=== PATIENT | female | born 1965 | race Caucasian/White ===

== ENCOUNTER 2020-02-20 16:42 | Outpatient (REF) | payer OTHER, SELFPAY ==
--- NOTE | 2020-02-20 | MM_ITS ---
EXAMINATION: MM SCREENING DIGITAL BREAST TOMOSYNTHESIS, BILATERAL CLINICAL INFORMATION: Screening. Asymptomatic. The lifetime risk of breast cancer based on the Tyrer-Cuzick Model is 19.5%. COMPARISON: Mammography: 10/21/2018, 10/15/2017, 10/02/2016 TECHNIQUE: Digital breast tomosynthesis is performed in both the craniocaudal and mediolateral oblique views along with computer-aided detection (CAD). Synthesized 2D images are generated from the tomosynthesis. FINDINGS: There are scattered areas of fibroglandular density (ACR BI-RADS breast composition Category b). There are no significant masses, abnormal calcifications, or other abnormalities. There is small stable nodule likely dermal lesion overlying the inferior medial left breast. There is stable nodularity likely intraparenchymal nodes right breast upper outer quadrant. No significant changes from prior studies. IMPRESSION: No mammographic evidence of malignancy. ASSESSMENT: BI-RADS 2: Benign RECOMMENDATION: 1. Routine annual mammography screening. 2. The lifetime risk of breast cancer based on the Tyrer-Cuzick Model is 19.5%. Additional annual adjunct screening with breast MRI may be of benefit in women with a risk score of 20% or greater. This patient's information was entered into a reminder system with a target due date for their next mammogram.
== END 2020-02-20 16:43 | disposition home or self-care (01) ==
LOC: HO.MAMMO 16:42
PROVIDERS: PCP Internal Medicine; Visit Provider Internal Medicine
DX: Z12.31 Encounter for screening mammogram for malignant neoplasm of breast (principal)
CPT/HCPCS: 77063; 77067; 78014

== ENCOUNTER 2021-04-13 08:03 | Outpatient (REF) | payer BC, SELFPAY ==
--- NOTE | ~2021-04-13 | MM_ITS ---
EXAMINATION: MM SCREENING DIGITAL BREAST TOMOSYNTHESIS, BILATERAL CLINICAL INFORMATION: Screening. Asymptomatic. The lifetime risk of breast cancer based on the Tyrer-Cuzick Model is 18%. COMPARISON: Mammography: 02/20/2020, 10/21/2018, 10/15/2017 TECHNIQUE: Digital breast tomosynthesis is performed in both the craniocaudal and mediolateral oblique views along with computer-aided detection (CAD). Synthesized 2D images are generated from the tomosynthesis. FINDINGS: There are scattered areas of fibroglandular density (ACR BI-RADS breast composition Category b). There are no significant masses, abnormal calcifications, or other abnormalities. Again, there is dermal lesion overlying the posterior medial left breast. Intramammary nodes again seen overlying the posterior outer bilateral breasts. MM/MM tomosynthesis screening BI IMPRESSION: No mammographic evidence of malignancy. ASSESSMENT: BI-RADS 2: Benign RECOMMENDATION: Routine annual mammography screening. This patient's information was entered into a reminder system with a target due date for their next mammogram.
== END 2021-04-13 08:04 | disposition home or self-care (01) ==
LOC: HO.MAMMO 08:03
PROVIDERS: PCP Internal Medicine; Visit Provider Internal Medicine
DX: Z12.31 Encounter for screening mammogram for malignant neoplasm of breast (principal)
CPT/HCPCS: 77063; 77067

== ENCOUNTER 2022-04-17 08:01 | Outpatient (REF) | payer BC, SELFPAY ==
--- NOTE | ~2022-04-17 | MM_ITS ---
EXAMINATION: MM SCREENING DIGITAL BREAST TOMOSYNTHESIS, BILATERAL CLINICAL INFORMATION: Screening. Asymptomatic. Family history breast cancer, mother. The lifetime risk of breast cancer based on the Tyrer-Cuzick Model is 21%. COMPARISON: Mammography: 04/13/2021, 02/20/2020, 10/21/2018 TECHNIQUE: Digital breast tomosynthesis is performed in both the craniocaudal and mediolateral oblique views along with computer-aided detection (CAD). Synthesized 2D images are generated from the tomosynthesis. FINDINGS: There are scattered areas of fibroglandular density (ACR BI-RADS breast composition Category b). There are no significant masses, abnormal calcifications, or other abnormalities. Parenchymal pattern is similar to prior studies. No architectural abnormality or developing density. Again, there is a dermal lesion overlying the posterior medial left breast and incidental intramammary nodes upper outer bilateral breasts. No significant changes. MM/MM tomosynthesis screening BI IMPRESSION: No mammographic evidence of malignancy. ASSESSMENT: BI-RADS 2: Benign RECOMMENDATION: Routine annual mammography screening. This patient's information was entered into a reminder system with a target due date for their next mammogram.
== END 2022-04-17 08:02 | disposition home or self-care (01) ==
LOC: HO.MAMMO 08:01
PROVIDERS: PCP Internal Medicine; Visit Provider Internal Medicine
DX: Z12.31 Encounter for screening mammogram for malignant neoplasm of breast (principal)
CPT/HCPCS: 77063; 77067

== ENCOUNTER 2023-06-11 07:34 | Outpatient (REF) | payer BC, SELFPAY | END 2023-06-11 07:35 | disposition home or self-care (01) | LOC: HO.MAMMO 07:34 | PROVIDERS: PCP Nurse Practitioner Family; Visit Provider Internal Medicine | DX: Z12.31 Encounter for screening mammogram for malignant neoplasm of breast (principal) | CPT/HCPCS: 77063; 77067 ==

== ENCOUNTER → 2023-06-11 08:00 | Outpatient (BNV) | payer BC, SELFPAY | PROVIDERS: PCP Nurse Practitioner Family; Visit Provider Radiology Diagnostic Radiology | DX: Z12.31 Encounter for screening mammogram for malignant neoplasm of breast (principal) | CPT/HCPCS: 77063; 77067 ==

== ENCOUNTER 2024-07-18 14:48 | Outpatient (REF) | payer BC, SELFPAY ==
--- OUTSIDE RECORDS SUMMARY | 2024-07-18 17:56 | XMS_ITS | Continuity of Care Document ---
Author Organization [facility] Julio Cesar Jose Juan lt Address [address] [place] [address]- Care Team Providers Care Embedded Processor Name Role Phone Amilcar ROAST MASTER, Whitney Buck Primary Care Physician [phone] Encounter [facility] Date(s): 05/31/24 - 06/30/24 [facility] Jarod Spearsley Adult [address] [place] [address]- Encounter Type: Triage Allergies, Adverse Reactions, Alerts Substance Criticality Severity Reaction Reaction Severity Status glipiZIDE bloating Active simvastatin Active penicillins Active Invokana mycotic Active Lipitor Resolved metFORMIN diarrhea Resolved Immunizations Given and Recorded Vaccine Date Status Refusal Reason influenza virus vaccine, inactivated 1 03/01/24 Gi jose influenza virus vaccine, inactivated 2 02/22/23 Gi jose influenza virus vaccine, inactivated 04/27/21 Dov rded influenza virus vaccine, inactivated 01/13/20 Dov rded influenza virus vaccine, inactivated 03/13/19 Give n influenza virus vaccine, inactivated 3 03/18/17 Re corded influenza virus vaccine, inactivated 02/14/14 Give n influenza virus vaccine, inactivated 06/07/13 Give n tetanus-diphtheria toxoids (Td) 4 11/05/22 Given tetanus-diphtheria toxoids (Td) 5 02/17/06 Given pneumococcal 20-valent conjugate vaccine 6 11/05/22 Given SARS-CoV-2 (COVID-19) mRNA BNT-162b2 vac 04/27/21 Recorded SARS-CoV-2 (COVID-19) mRNA BNT-162b2 vac 09/13/20 Recorded SARS-CoV-2 (COVID-19) mRNA BNT-162b2 vac 08/22/20 Recorded zoster vaccine, inactivated 01/13/20 Recorded zoster vaccine, inactivated 10/06/19 Recorded Influenza Virus Vaccine (oldterm) 02/21/18 Recorde d pneumococcal 23-valent vaccine 06/29/12 Given tetanus/diphtheria/pertussis, acel(Tdap) 06/29/12 Given Fluarix (oldterm) 03/02/11 Given 1Result Comment: [id number] 2Result Comment: [id number] 3[facility] Comment: [facility] 4[facility] Comment: [id number] 5Admin Note: historical data 6Result Comment: [id number] Medications amLODIPine 5 mg oral tablet 1 tablet, By Mouth, Daily, # 90 tablet, 1 Refills, Maintenance, 03/26/24 2:19:00 PM EST, [facility], 161, cm, 03/01/24 13:44:00 EDT, Height Start Date: 03/26/24 Status: Ordered Quantity: 90.0 Unit: tablet Repeat number: 1 aspirin 81 mg oral enteric coated capsule 1 capsule = 81 mg, By Mouth, Daily, # 120 capsule, 0 Refills, Maintenance, 06/01/11 7:19:21 PM EST, EC Capsule Start Date: 06/01/11 Status: Ordered Quantity: 120.0 Unit: capsule Repeat number: 1 atenolol 100 mg oral tablet 1 tablet, By Mouth, Daily, # 90 tablet, 1 Refills, Maintenance, 02/09/24 1:01:00 PM EDT, [facility], 162, cm, 11/11/23 12:56:00 EDT, Height Start Date: 02/09/24 Status: Ordered Quantity: 90.0 Unit: tablet Repeat number: 1 atorvastatin 80 mg oral tablet 1 tablet, By Mouth, Daily, # 90 tablet, 0 Refills, 04/17/24 7:33:00 AM EST, [facility], 161,cm, 03/01/24 13:44:00 EDT, Height Start Date: 04/17/24 Status: Ordered Quantity: 90.0 Unit: tablet Repeat number: 1 BD UF SHORT PEN NEEDLE [id number] BD UF SHORT PEN NEEDLE [id number], See Instructions, # 100 Unknown, 1 Refills, Maintenance, TO USE WITH INSULIN PEN DX: E11.9, 02/07/24 11:13:00 AM EDT, 162, cm, 11/11/23 12:56:00 EDT, Height Start Date: 02/07/24 Status: Ordered Quantity: 100.0 Unit: Unknown Repeat number: 1 ezetimibe 10 mg oral tablet 1 tablet, By Mouth, Daily, # 90 tablet, 0 Refills, Maintenance, 05/03/24 9:49:00 PM EST, [facility], 161, cm, 03/01/24 13:44:00 EDT, Height Start Date: 05/03/24 Status: Ordered Quantity: 90.0 Unit: tablet Repeat number: 1 FreeStyle Yung 3 FreeStyle Yung 3, See Instructions, # 2 each, Refills 11, Tot. Refills 11, Maintenance, FreeStyle Yung 3 Sensors change every 14 days to use with erick on phone E11.9 takes insulin once a day check blood sugars 4 times a day, 11/11/23 2:49:00 PM EDT, i cancelled the yung 2 and she wants yung 3 andwill use her phone, Supply, 162, cm, 11/11/23 12:56:00 EDT, Height Start Date: 11/11/23 Status: Ordered Quantity: 2.0 Unit: each Repeat number: 12 Freestyle Lite Lancets See Instructions, # 200 each, Refills 11, Tot. Refills 11, Maintenance, dx:250.00 pt tests bid, 02/01/13 12:57:00 PM EDT, Compound Start Date: 02/01/13 Stop Date: 01/27/14 Status: Ordered Quantity: 200.0 Unit: each Repeat number: 12 Freestyle Lite Test Strips See Instructions, # 90 each, Refills 5, Tot. Refills 5, Maintenance, Test BS TID for IDDM E11.9, 09/24/16 3:53:48 PM EDT, Compound Start Date: 09/24/16 Stop Date: 03/23/17 Status: Ordered Quantity: 90.0 Unit: each Repeat number: 6 Insulin Syringe, BD Ultra-Fine 1 cc 31 G x 8 mm (5/16in) See Instructions, # 100 each, Refills 11, Tot. Refills 11, Maintenance, E11.9 Diabetes type 2 use once a day with lantus, 08/26/22 1:45:00 PM EDT, Supply, 163, cm, 08/26/22 13:07:00 EDT, Height Start Date: 08/26/22 Status: Ordered Quantity: 100.0 Unit: each Repeat number: 12 Lantus Solostar Pen 100 units/mL subcutaneous solution See Instructions, 40 UNITS SUBCUTANEOUS INJECTION DAILY AT BEDTIME,X90 DAYS, # 15 Unknown, 0 Refills, Maintenance, 05/28/24 2:30:00 PM EST, [facility]/pharmacy #[id number], 161, cm, 05/28/24 14:02:00 EST, Height Start Date: 05/28/24 Status: Ordered Quantity: 15.0 Unit: Unknown Repeat number: 1 lisinopril 10 mg oral tablet 1, tablet, By Mouth, Daily, # 90 tablet, Refills 1, Maintenance, 01/02/24 5:41:00 PM EDT, Route to Pharmacy Electronically, [facility], 162, cm, 11/11/23 12:56:00 EDT, Height Start Date: 01/02/24 Status: Ordered Quantity: 90.0 Unit: tablet Repeat number: 1 Ozempic 8 mg/3 mL (2 mg dose) subcutaneous solution = 2 mg, Subcutaneous Injection, Every 7 days, # 3 each, 1 Refills, Maintenance, 05/28/24 2:28:00 PM EST, [facility]/pharmacy #[id number], 161, cm, 05/28/24 14:02:00 EST, Height Start Date: 05/28/24 Stop Date: 11/24/24 Status: Ordered Quantity: 3.0 Unit: each Repeat number: 2 Pen [place], 31 G x 5 mm BD Ultra Fine III See Instructions, # 100 each, Refills 1, Tot. Refills 1, Maintenance, TO USE WITH INSULIN PEN DX: E11.9, 08/12/23 10:58:00 AM EDT, Compound, 162, cm, 02/22/23 8:49:00 EDT, Height Start Date: 08/12/23 Status: Ordered Quantity: 100.0 Unit: each Repeat number: 2 Problem List Condition Confirmation Course Effective Dates Status H ealth Status Informant Adjustment disorder with depressed mood Confirmed Active Arteriosclerotic heart disease (ASHD) 1 Confirmed Active Benign Essential Hypertension 2 Confirmed 02/19/09 Active Bunion of right foot Confirmed Active Diverticulosis, sigmoid Confirmed Active Familial hyperlipidemia Confirmed Active Meralgia paresthetica of left side Confirmed Active Severe obesity (BMI 35.0-39.9) with comorbidity Confirmed Active Type 2 diabetes with nephropathy 3 Confirmed Active 1lad stent 2011 [place] 2workup pending ETT,Echo 3refer diabetic education Social History Social History Type Response Smoking Status Never smoker; Tobacc o user in household: No entered on: 08/19/14 Sex Sex Representation Female (finding) Patient Care team information Care Team Personnel Name: Amilcar BUSTAMANTE, Whitney Buck Position: [facility] PCO Associate Professional Member Role: PCP Address: [address] [place] [phone]- Telecom: Care Team Related Persons Name: JAMIE GRIJALVA Name: MARSHALL GRIJALVA Insurance Providers Guarantor name: LINDA VALENTINE Health Plan Information #: 1 Payer: HMO BLUE [employer] NETWORK Member Number: NA Policy Number: NA Group Number: NA
--- OUTSIDE RECORDS SUMMARY | 2024-07-18 17:56 | XMS_ITS | Continuity of Care Document ---
Author Organization [facility] Julio Cesar Jose Juan lt Address [address] [place] [address]- Care Team Providers Care Marketing Director Assisted Living Name Role Phone Amilcar SUBSTATION MAINTENANCE TECHNICIAN, Whitney Buck Primary Care Physician [phone] Encounter [facility] Date(s): 06/06/24 - 07/06/24 [facility] Jarod Spearsley Adult [address] [place] [address]- Encounter Type: Triage Allergies, Adverse Reactions, Alerts [...] Given Fluarix (oldterm) 03/02/11 Given 1Result Comment: [id number] 2Result Comment: [id number] 3[facility] Comment[facility] Comment: [id number] 5Admin Note: historical data 6Result Comment: [id number] Medications amLODIPine 5 mg oral tablet 1 tablet, By Mouth, Daily, # 90 tablet, 1 Refills, Maintenance, 03/26/24 2:19:00 PM EST, [facility], 161, cm, 03/01/24 13:44:00 EDT, Height Start [...] Maintenance, 02/09/24 1:01:00 PM EDT, [facility], 162, cm, 11/11/23 12:56:00 EDT, Height Start Date: 02/09/24 Status: Ordered Quantity: 90.0 Unit: tablet Repeat number: 1 atorvastatin 80 mg oral tablet 1 tablet, By Mouth, Daily, # 90 tablet, 0 Refills, 04/17/24 7:33:00 AM EST, [id number], 161,cm, 03/01/24 13:44:00 EDT, Height Start Date: 04/17/24 Status: Ordered Quantity: 90.0 Unit: tablet Repeat number: 1 BD UF SHORT PEN NEEDLE [id number] BD UF SHORT PEN NEEDLE [id number], See Instructions, # 100 Unknown, 1 Refills, Maintenance, TO USE WITH INSULIN PEN DX: E11.9, 02/07/24 11:13:00 AM EDT, 162, cm, 11/11/23 12:56:00 EDT, Height Start Date: 02/07/24 Status: Ordered Quantity: 100.0 Unit: Unknown Repeat number: 1 ezetimibe 10 mg oral tablet 1 tablet, By Mouth, Daily, # 90 tablet, 0 Refills, Maintenance, 05/03/24 9:49:00 PM EST, [facility], 161, cm, 03/01/24 13:44:00 EDT, Height Start [...] 0 Refills, Maintenance, 05/28/24 2:30:00 PM EST, [facility]/pharmacy #[id number], 161, cm, 05/28/24 14:02:00 EST, Height Start Date: 05/28/24 Status: Ordered Quantity: 15.0 Unit: Unknown Repeat number: 1 lisinopril 10 mg oral tablet 1, tablet, By Mouth, Daily, # 90 tablet, Refills 1, Maintenance, 01/02/24 5:41:00 PM EDT, Route to Pharmacy Electronically, [facility], 162, cm, 11/11/23 12:56:00 EDT, Height Start Date: 01/02/24 Status: Ordered Quantity: 90.0 Unit: tablet Repeat number: 1 Ozempic 8 mg/3 mL (2 mg dose) subcutaneous solution = 2 mg, Subcutaneous Injection, Every 7 days, # 3 each, 1 Refills, Maintenance, 05/28/24 2:28:00 PM EST, [facility]/pharmacy #[id number], 161, cm, 05/28/24 14:02:00 EST, Height Start Date: 05/28/24 Stop Date: 11/24/24 Status: Ordered Quantity: 3.0 Unit: each Repeat number: 2 Pen [place], 31 G x 5 mm BD Ultra [...] Personnel Name: Amilcar BUSTAMANTE, Whitney Buck Position: [facility] PCO Associate Professional Member Role: PCP Address: [address] [place] [phone]- Telecom: Care Team Related Persons Name: JAMIE GRIJALVA Name: MARSHALL GRIJALVA Insurance Providers Guarantor name: LINDA GRIJALVA Health Plan Information #: 1 Payer: HMO BLUE IN NETWORK Member Number: NA Policy Number: NA Group Number: NA
== END 2024-07-18 14:49 | disposition home or self-care (01) ==
LOC: HO.MAMMO 14:48
PROVIDERS: PCP Nurse Practitioner Family; Visit Provider Nurse Practitioner Family
DX: Z12.31 Encounter for screening mammogram for malignant neoplasm of breast (principal)
CPT/HCPCS: 77063; 77067

== ENCOUNTER → 2024-07-18 15:15 | Outpatient (BNV) | payer BC, SELFPAY | PROVIDERS: PCP Nurse Practitioner Family; Visit Provider Internal Medicine | DX: Z12.31 Encounter for screening mammogram for malignant neoplasm of breast (principal) | CPT/HCPCS: 77063; 77067 ==

== ENCOUNTER 2024-08-27 11:28 | Outpatient (REF) | payer BC, SELFPAY ==
--- NOTE | ~2024-08-27 | MM_ITS ---
EXAMINATION: MM DIAGNOSTIC DIGITAL BREAST TOMOSYNTHESIS, BILATERAL Bilateral Limited ultrasound. CLINICAL INFORMATION: Call back from screening for bilateral asymmetries. COMPARISON: Mammography: Comparison is made with relevant prior exams. TECHNIQUE: Digital breast mammography with tomosynthesis is performed in both the craniocaudal and mediolateral oblique views along with computer-aided detection (CAD). FINDINGS: There are scattered areas of fibroglandular density (ACR BI-RADS breast composition Category b). Left: There is architectural distortion in the lateral breast on CC view posterior depth which persists on additional imaging projections. No suspicious calcifications or other abnormal findings. Targeted color Doppler ultrasound scanning from 12 -5:00 demonstrates normal fibronodular breast tissue. There is no sonographic correlate for the asymmetry with distortion on mammography. Right: Focal asymmetry in the retroareolar central outer breast persist on additional imaging projections. No suspicious calcifications or other abnormal findings. Targeted color Doppler ultrasound scanning in the retroareolar region of the right breast demonstrates normal fibronodular breast tissue. There is no sonographic correlate for the focal asymmetry on mammography. Results are provided to the patient at time of visit by the technologist. MM/MM tomosynthesis added view BI IMPRESSION: Right: Focal asymmetry without sonographic correlate. Recommend 6 month follow-up for further evaluation of stability. Left: Architectural distortion the lateral breast posterior depth on CC view. Recommend stereotactic core needle biopsy at this time for confirmation. The findings and recommendations were discussed with the patient the procedure will be scheduled. ASSESSMENT: BI-RADS BI-RADS 4 - Suspicious finding RECOMMENDATION: Biopsy recommended This patient's information was entered into a reminder system with a target due date for their next mammogram. Electronically signed by: Yovana Hughes DO 08/30/2024 02:22 PM EDT
--- OUTSIDE RECORDS SUMMARY | 2024-08-27 13:31 | XMS_ITS | Continuity of Care Document ---
Author Organization [facility] Julio Cesar Jose Juan lt Address [address] [place] [id number]- Care Team Providers Care Sound Editor Name Role Phone Amilcar VIDEOTAPE EDITOR, Whitney Buck Primary Care Physician [phone] Encounter [facility] [place] [facility] Date(s): 07/23/24 - 08/22/24 [facility] Adult [address] [place] [address]- Encounter Type: Triage Allergies, Adverse Reactions, Alerts Substance Criticality Severity Reaction Reaction Severity Status glipiZIDE bloating Active simvastatin Active penicillins Active Lipitor Resolved metFORMIN diarrhea Resolved Invokana mycotic Active Immunizations Given and Recorded Vaccine Date Status [...] Given Fluarix (oldterm) 03/02/11 Given 1Result Comment: [id number] 2Result Comment: [id number] 3Result Comment: [facility] 4[facility] Comment: [id number] 5Admin Note: historical data 6Result Comment: [id number] Medications amLODIPine 5 mg oral tablet 1 tablet, By Mouth, Daily, # 90 tablet, 1 Refills, Maintenance, 08/20/24 1:28:00 PM EDT, [facility]/pharmacy#[id number], 161, cm, 08/20/24 13:25:00 EDT, Height Start Date: 08/20/24 Status: Ordered Quantity: 90.0 Unit: tablet Repeat number: 2 aspirin 81 mg oral enteric coated capsule 1 capsule = 81 mg, By Mouth, Daily, # 120 capsule, 0 Refills, Maintenance, 06/01/11 7:19:21 PM EST, [facility] Capsule Start Date: 06/01/11 Status: Ordered Quantity: 120.0 Unit: capsule Repeat number: 1 atenolol 100 mg oral tablet 1 tablet, By Mouth, Daily, # 90 tablet, 1 Refills, Maintenance, 02/09/24 1:01:00 PM EDT, [facility], 162, cm, 11/11/23 12:56:00 EDT, Height Start Date: 02/09/24 Status: Ordered Quantity: 90.0 Unit: tablet Repeat number: 1 atorvastatin 80 mg oral tablet 1 tablet, By Mouth, Daily, # 90 tablet, 0 Refills, Maintenance, 08/20/24 1:28:00 PM EDT, [facility], 161, cm, 08/20/24 13:25:00 EDT, Height Start Date: 08/20/24 Status: Ordered Quantity: 90.0 Unit: tablet Repeat number: 1 BD UF SHORT PEN NEEDLE [id number] BD UF SHORT PEN NEEDLE [id number], See Instructions, # 100 Unknown, 1 Refills, Maintenance, TO USE WITH INSULIN PEN DX: E11.9, 02/07/24 11:13:00 AM EDT, 162, cm, 11/11/23 12:56:00 EDT, Height Start Date: 02/07/24 Status: Ordered Quantity: 100.0 Unit: Unknown Repeat number: 1 ezetimibe 10 mg oral tablet 1 tablet, By Mouth, Daily, # 90 tablet, 1 Refills, Maintenance, 08/01/24 10:07:00 AM EDT, [facility], 161, cm, 05/28/24 14:34:00 EST, Height Start Date: 08/01/24 Status: Ordered Quantity: 90.0 Unit: tablet Repeat [...] Pen 100 units/mL subcutaneous solution See Instructions, INJECT 36 UNITS SUBCUTANEOUSLY DAILY AT BEDTIME, # 15 Unknown, 1 Refills, Maintenance, 07/23/24 3:26:00 PM EDT, [facility], 161, cm, 05/28/24 14:34:00 EST, Height Start Date: 07/23/24 Status: Ordered Quantity: 15.0 Unit: Unknown Repeat number: 1 lisinopril 10 mg oral tablet 1, tablet, By Mouth, Daily, # 90 tablet, Refills 1, Maintenance, 01/02/24 5:41:00 PM EDT, Route to Pharmacy Electronically, [facility], 162, cm, 11/11/23 12:56:00 EDT, Height Start Date: 01/02/24 Status: Ordered Quantity: 90.0 Unit: tablet Repeat number: 1 Ozempic 8 mg/3 mL (2 mg dose) subcutaneous solution = 2 mg, Subcutaneous Injection, Every 7 days, # 3 each, 1 Refills, Maintenance, 11/24/24 2:28:00 PM EDT, [facility]/pharmacy #[id number], 161, cm, 08/20/24 13:04:00 EDT, Height Start Date: 11/24/24 Stop Date: 05/23/25 Status: Ordered Quantity: 3.0 Unit: each Repeat number: 2 Ozempic 8 mg/3 mL (2 mg dose) subcutaneous solution = 2 mg, Subcutaneous Injection, Every 7 days, for 90 days, # 3 each, 1 Refills, Hard Stop 11/24/24 2:28:00 PM EDT, 05/28/24 2:28:00 PM EST, [facility]/pharmacy #[id number], 161, cm, 05/28/24 14:02:00 EST, Height Start Date: 05/28/24 Stop Date: 11/24/24 Status: Ordered Quantity: 3.0 Unit: each Repeat number: 2 Pen [place], 31 G x 5 mm BD Ultra [...] Care team information Care Team Personnel Name: Whitney Fitzgerald NP Position: S PCO Associate Professional Member Role: PCP Address: [address] [place] [phone]- Telecom: Care Team Related Persons Name: JAMIE GRIJALVA Name: MARSHALL GRIJALVA Insurance Providers Guarantor name: LINDA GRIJALVA Health Plan Information #: 1 Payer: HMO BLUE IN NETWORK Member Number: NA Policy Number: NA Group Number: NA
== END 2024-08-27 11:29 | disposition home or self-care (01) ==
LOC: HO.MAMMO 11:28
PROVIDERS: PCP Nurse Practitioner Family; Visit Provider Nurse Practitioner Family
DX: Z85.3 Personal history of malignant neoplasm of breast (principal)
CPT/HCPCS: 76642; 77062; 77066

== ENCOUNTER → 2024-08-27 12:00 | Outpatient (BNV) | payer BC, SELFPAY | PROVIDERS: PCP Nurse Practitioner Family; Visit Provider Internal Medicine | DX: R92.323 Mammographic fibroglandular density, bilateral breasts (principal) | CPT/HCPCS: 76642; 77062; 77066 ==

== ENCOUNTER 2024-09-06 07:40 | Outpatient (REF) | payer BC, SELFPAY ==
--- NOTE | ~2024-09-06 | MM_ITS ---
EXAMINATION: STEREOTACTICALLY-GUIDED LEFT BREAST BIOPSY CLINICAL INFORMATION: Area of distortion with asymmetry lateral left breast posterior depth on CC view. Family history of breast cancer COMPARISON: Priors on PACS. INFORMED CONSENT: After the details of the procedure, as well as the risks (including, but not limited to, bleeding, hematoma formation, and infection), benefits and alternatives (including doing nothing, short-interval follow up, and surgery) to the procedure were explained to the patient in detail and all of her questions were answered, informed written consent was obtained. TECHNIQUE/FINDINGS: A timeout was performed. The lesion intended for biopsy was identified stereotactically and targeted. The skin of the left breast was then cleansed with sterile solution. Using stereotactic guidance, aseptic technique, and 1% lidocaine with and without epinephrine for local anesthesia, a total of 12 cores were obtained through the targeted area with a 9-gauge vacuum-assisted Eviva core biopsy device from a inferior approach. At the completion of tissue sampling, a single top hat-shaped metallic clip was deposited at the biopsy site. Adequate sampling was achieved. The postprocedure 2-view direct digital mammogram reveals satisfactory positioning of the biopsy clip. The patient tolerated the procedure well and, after assuring adequate hemostasis, was discharged in good condition after reviewing postbiopsy breast care instructions. Final pathology results are pending. MM/MM stereotactic biopsy LT IMPRESSION: 1. Uncomplicated stereotactically-guided core biopsy of the left breast. The 2-view direct digital postprocedure mammogram reveals satisfactory positioning of the biopsy clip. 2. Final pathology results are pending. A separate report with final recommendations will be issued once these results are made available. 3. A 6 month follow-up is recommended for the right breast focal asymmetry without sonographic correlate. Electronically signed by: Yovana Hughes DO 09/06/2024 11:11 AM EDT
--- OUTSIDE RECORDS SUMMARY | 2024-09-06 07:42 | XMS_ITS | Continuity of Care Document ---
Author Organization [facility] Julio Cesar Jose Juan lt Address [address] [place] [phone]- Care Team Providers Care Regional Branch Manager Name Role Phone Amilcar INTELLIGENCE OFFICER, Whitney Buck Primary Care Physician [phone] Encounter [facility] Date(s): 08/03/24 - 09/02/24 [facility] Julio Cesar Adult [address] [place] [address]- Encounter Type: Triage Allergies, Adverse Reactions, Alerts Substance Criticality Severity Reaction Reaction Severity Status glipiZIDE bloating Active simvastatin Active Invokana mycotic Active penicillins Active Lipitor Resolved metFORMIN diarrhea Resolved Immunizations [...] Given Fluarix (oldterm) 03/02/11 Given 1Result Comment: [id number] 2Result Comment: [id number] 3Result Comment: [facility] 4Result Comment: [id number] 5Admin Note: historical data 6Result Comment: [id number] Medications amLODIPine 5 mg oral tablet 1 tablet, By Mouth, Daily, # 90 tablet, 1 Refills, Maintenance, 08/20/24 1:28:00 PM EDT, [facility]/pharmacy#[id number], 161, cm, 08/20/24 13:25:00 EDT, Height Start [...] Maintenance, 02/09/24 1:01:00 PM EDT, [facility], 162, cm, 11/11/23 12:56:00 EDT, Height Start Date: 02/09/24 Status: Ordered Quantity: 90.0 Unit: tablet Repeat number: 1 atorvastatin 80 mg oral tablet 1 tablet, By Mouth, Daily, # 90 tablet, 0 Refills, Maintenance, 08/20/24 1:28:00 PM EDT, [facility]/pharmacy#[id number], 161, cm, 08/20/24 13:25:00 EDT, Height Start Date: 08/20/24 Status: Ordered Quantity: 90.0 Unit: tablet Repeat number: 1 BD UF SHORT PEN NEEDLE [id number] BD UF SHORT PEN NEEDLE [id number], See Instructions, # 100 Unknown, 1 Refills, Maintenance, TO USE WITH INSULIN PEN DX: E11.9, 02/07/24 11:13:00 AM EDT, 162, cm, 11/11/23 12:56:00 EDT, Height Start Date: 02/07/24 Status: Ordered Quantity: 100.0 Unit: Unknown Repeat number: 1 ezetimibe 10 mg oral tablet 1 tablet, By Mouth, Daily, # 90 tablet, 1 Refills, Maintenance, 08/01/24 10:07:00 AM EDT, [facility], 161, cm, 05/28/24 14:34:00 EST, Height Start [...] Maintenance, 07/23/24 3:26:00 PM EDT, [facility], 161, cm, 05/28/24 14:34:00 EST, Height Start Date: 07/23/24 Status: Ordered Quantity: 15.0 Unit: Unknown Repeat number: 1 lisinopril 10 mg oral tablet 1, tablet, By Mouth, Daily, # 90 tablet, Refills 1, Maintenance, 01/02/24 5:41:00 PM EDT, Route to Pharmacy Electronically, [facility], 162, cm, 11/11/23 12:56:00 EDT, Height Start Date: 01/02/24 Status: Ordered Quantity: 90.0 Unit: tablet Repeat number: 1 Ozempic 8 mg/3 mL (2 mg dose) subcutaneous solution = 2 mg, Subcutaneous Injection, Every 7 days, # 3 each, 1 Refills, Maintenance, 11/24/24 2:28:00 PM EDT, [facility]/pharmacy #[id number], 161, cm, 08/20/24 13:04:00 EDT, Height Start Date: 11/24/24 Stop Date: 05/23/25 Status: Ordered Quantity: 3.0 Unit: each Repeat number: 2 Ozempic 8 mg/3 mL (2 mg dose) subcutaneous solution = 2 mg, Subcutaneous Injection, Every 7 days, for 90 days, # 3 each, 1 Refills, Hard Stop 11/24/24 2:28:00 PM EDT, 05/28/24 2:28:00 PM EST, [id number], 161, cm, 05/28/24 14:02:00 EST, Height Start Date: 05/28/24 Stop Date: 11/24/24 Status: Ordered Quantity: 3.0 Unit: each Repeat number: 2 Pen [place], 31 G x 5 mm BD Ultra [...] Team Personnel Name: Whitney Fitzgerald NP Position: [facility] PCO Associate Professional Member Role: PCP Address: [address] [place] [address]- Telecom: Care Team Related Persons Name: JAMIE GRIJALVA Name: MARSHALL GRIJALVA Insurance Providers Guarantor name: LINDA GRIJALVA Health Plan Information #: 1 Payer: [employer] Member Number: NA Policy Number: NA Group Number: NA
[2024-09-06] MEDS: Lidocaine HCl 1 % 20 ML VIAL SUBCUT (09:32)
[2024-09-06] MEDS: Sodium Bicarbonate 8.4% 50 MEQ/50 ML VIAL SUBCUT (09:35)
[2024-09-06] MEDS: Lidocaine HCl 1%/Epi 1:100,000 10 ML VIAL 5 ML SUBCUT (09:37)
== END 2024-09-06 07:41 | disposition home or self-care (01) ==
LOC: HO.MAMMO 07:40
PROVIDERS: PCP Nurse Practitioner Family; Visit Provider Nurse Practitioner Family
DX: R92.8 Other abnormal and inconclusive findings on diagnostic imaging of breast (principal); Z80.3 Family history of malignant neoplasm of breast
CPT/HCPCS: 19081; 88305; A4648; J2003; J2004

== ENCOUNTER → 2024-09-06 08:00 | Outpatient (BNV) | payer BC, SELFPAY | PROVIDERS: PCP Nurse Practitioner Family; Visit Provider Internal Medicine | DX: N63.20 Unspecified lump in the left breast, unspecified quadrant (principal) | CPT/HCPCS: 19081 ==

== ENCOUNTER 2025-03-11 14:10 | Outpatient (REF) | payer BC, SELFPAY ==
--- OUTSIDE RECORDS SUMMARY | 2025-03-07 23:59 | XMS_ITS | Continuity of Care Document ---
Author Organization [facility] Julio Cesar Jose Juan lt Address [address] [place] [address]- Care Team Providers Care Layout Inspector Name Role Phone Amilcar PIE FILLING MIXER, Whitney Buck Primary Care Physician Encounter [facility] Date(s): 02/05/25 - 03/07/25 [facility] Adult [address] [place] [address]- Encounter Type: Triage Allergies, Adverse Reactions, Alerts Substance Criticality Severity Reaction Reaction Severity Status glipiZIDE bloating Active simvastatin Active Invokana mycotic Active penicillins Active Lipitor Resolved metFORMIN diarrhea Resolved Immunizations Given and Recorded Vaccine Date Status Refusal Reason tetanus/diphtheria/pertussis, acel(Tdap) 1 02/01/25 Given tetanus/diphtheria/pertussis, acel(Tdap) 06/29/12 Given influenza virus vaccine, inactivated 2 03/01/24 Gi jose influenza virus vaccine, inactivated 3 02/22/23 Gi jose influenza virus vaccine, inactivated 04/27/21 Dov rded influenza virus vaccine, inactivated 01/13/20 Dov rded influenza virus vaccine, inactivated 03/13/19 Give n influenza virus vaccine, inactivated 4 03/18/17 Re corded influenza virus vaccine, inactivated 02/14/14 Give n influenza virus vaccine, inactivated 06/07/13 Give n tetanus-diphtheria toxoids (Td) 5 11/05/22 Given tetanus-diphtheria toxoids (Td) 6 02/17/06 Given pneumococcal 20-valent conjugate vaccine 7 11/05/22 Given SARS-CoV-2 (COVID-19) mRNA BNT-162b2 vac 04/27/21 Recorded SARS-CoV-2 (COVID-19) mRNA BNT-162b2 vac 09/13/20 Recorded SARS-CoV-2 (COVID-19) mRNA BNT-162b2 vac 08/22/20 Recorded zoster vaccine, inactivated 01/13/20 Recorded zoster vaccine, inactivated 10/06/19 Recorded Influenza Virus Vaccine (oldterm) 02/21/18 Recorde d pneumococcal 23-valent vaccine 06/29/12 Given Fluarix (oldterm) 03/02/11 Given 1Result Comment: [id number] 2Result Comment: [id number] 3Result Comment: [id number] 4Result Comment: [facility]/2017] [facility] 5Result Comment: [id number] 6Admin Note: historical data 7Result Comment: [id number] Medications amLODIPine 5 mg oral tablet 1 tablet, By Mouth, Daily, # 90 tablet, 1 Refills, Maintenance, 08/20/24 1:28:00 PM EDT, [facility]/pharmacy#[id number], 161, cm, 08/20/24 13:25:00 EDT, Height Start Date: 08/20/24 Status: Ordered Medication Dispense Status: Completed Quantity: 90.0 Unit: tablet Total Allowed Fills: 2 Fills Dispensed: 0 aspirin 81 mg oral enteric coated capsule 1 capsule = 81 mg, By Mouth, Daily, # 120 capsule, 0 Refills, Maintenance, 06/01/11 7:19:21 PM EST, EC Capsule Start Date: 06/01/11 Status: Ordered Medication Dispense Status: Completed Quantity: 120.0 Unit: capsule Total Allowed Fills: 1 Fills Dispensed: 0 atenolol 100 mg oral tablet 1 tablet, By Mouth, Daily, # 90 tablet, 1 Refills, Maintenance, 01/29/25 9:44:00 AM EDT, [facility], 161, cm, 10/02/24 7:00:00 EDT, Height Start Date: 01/29/25 Status: Ordered Medication Dispense Status: Completed Quantity: 90.0 Unit: tablet Total Allowed Fills: 1 Fills Dispensed: 0 atorvastatin 80 mg oral tablet 1 tablet, By Mouth, Daily, # 90 tablet, 0 Refills, Maintenance, 01/09/25 11:59:00 AM EDT, [facility]/pharmacy #[id number], 161, cm, 10/02/24 7:00:00 EDT, Height Start Date: 01/09/25 Status: Ordered Medication Dispense Status: Completed Quantity: 90.0 Unit: tablet Total Allowed Fills: 1 Fills Dispensed: 0 BD UF SHORT PEN NEEDLE [id number] BD UF SHORT PEN NEEDLE [id number], See Instructions, # 100 Unknown, 1 Refills, Maintenance, TO USE WITH INSULIN PEN DX: E11.9, 02/07/24 11:13:00 AM EDT, 162, cm, 11/11/23 12:56:00 EDT, Height Start Date: 02/07/24 Status: Ordered Medication Dispense Status: Completed Quantity: 100.0 Unit: Unknown Total Allowed Fills: 1 Fills Dispensed: 0 ezetimibe 10 mg oral tablet 1 tablet, By Mouth, Daily, # 90 tablet, 1 Refills, Maintenance, 01/29/25 9:45:00 AM EDT, [facility] [address], 161, cm, 10/02/24 7:00:00 EDT, Height Start Date: 01/29/25 Status: Ordered Medication Dispense Status: Completed Quantity: 90.0 Unit: tablet Total Allowed Fills: 1 Fills Dispensed: 0 FreeStyle Yung 3 FreeStyle Yung 3, See Instructions, # 2 each, Refills 11, Tot. Refills 11, Maintenance, FreeStyle Yung 3 Sensors change every 14 days to use with erick on phone E11.Tanner takes insulin once a day check blood sugars 4 times a day, 11/11/23 2:49:00 PM EDT, i cancelled the yung 2 and she wants yung 3 andwill use her phone, Supply, 162, cm, 11/11/23 12:56:00 EDT, Height Start Date: 11/11/23 Status: Ordered Medication Dispense Status: Completed Quantity: 2.0 Unit: each Total Allowed Fills: 12 Fills Dispensed: 0 Freestyle Lite Lancets See Instructions, # 200 each, Refills 11, Tot. Refills 11, Maintenance, dx:250.00 pt tests bid, 02/01/13 12:57:00 PM EDT, Compound Start Date: 02/01/13 Stop Date: 01/27/14 Status: Ordered Medication Dispense Status: Completed Quantity: 200.0 Unit: each Total Allowed Fills: 12 Fills Dispensed: 0 Freestyle Lite Test Strips See Instructions, # 90 each, Refills 5, Tot. Refills 5, Maintenance, Test BS TID for IDDM E11.9, 09/24/16 3:53:48 PM EDT, Compound Start Date: 09/24/16 Stop Date: 03/23/17 Status: Ordered Medication Dispense Status: Completed Quantity: 90.0 Unit: each Total Allowed Fills: 6 Fills Dispensed: 0 Insulin Syringe, BD Ultra-Fine 1 cc 31 G x 8 mm (5/16in) See Instructions, # 100 each, Refills 11, Tot. Refills 11, Maintenance, E11.9 Diabetes type 2 use once a day with lantus, 08/26/22 1:45:00 PM EDT, Supply, 163, cm, 08/26/22 13:07:00 EDT, Height Start Date: 08/26/22 Status: Ordered Medication Dispense Status: Completed Quantity: 100.0 Unit: each Total Allowed Fills: 12 Fills Dispensed: 0 Lantus Solostar Pen 100 units/mL subcutaneous solution See Instructions, INJECT 36 UNITS SUBCUTANEOUSLY DAILY AT BEDTIME, # 15 Unknown, 2 Refills, Maintenance, 11/04/24 10:57:00 PM EDT, [facility], 161, cm, 10/02/24 7:00:00 EDT, Height Start Date: 11/04/24 Status: Ordered Medication Dispense Status: Completed Quantity: 15.0 Unit: Unknown Total Allowed Fills: 1 Fills Dispensed: 0 lisinopril 10 mg oral tablet 1, tablet, By Mouth, Daily, # 90 tablet, Refills 1, Maintenance, 09/07/24 9:02:00 AM EDT, Route to Pharmacy Electronically, [facility], 161, cm, 08/20/24 13:25:00 EDT, Height Start Date: 09/07/24 Status: Ordered Medication Dispense Status: Completed Quantity: 90.0 Unit: tablet Total Allowed Fills: 1 Fills Dispensed: 0 Ozempic 8 mg/3 mL (2 mg dose) subcutaneous solution = 2 mg, Subcutaneous Injection, Every 7 days, # 3 each, 1 Refills, Maintenance, 11/24/24 2:28:00 PM EDT, [facility]/pharmacy #[id number], 161, cm, 08/20/24 13:04:00 EDT, Height Start Date: 11/24/24 Stop Date: 05/23/25 Status: Ordered Medication Dispense Status: Completed Quantity: 3.0 Unit: each Total Allowed Fills: 2 Fills Dispensed: 0 Pen [place], 31 G x 5 mm BD Ultra Fine III See Instructions, # 100 each, Refills 1, Tot. Refills 1, Maintenance, TO USE WITH INSULIN PEN DX: E11.9, 08/12/23 10:58:00 AM EDT, [facility], 162, cm, 02/22/23 8:49:00 EDT, Height Start Date: 08/12/23 Status: Ordered Medication Dispense Status: Completed Quantity: 100.0 Unit: each Total Allowed Fills: 2 Fills Dispensed: 0 Problem List Condition Confirmation Course Effective Dates [...] education Social History Social History Type Response Sexual Sexually involved in last 6 months: No. Smoking Status Never smoker; Tobacc o user in household: No entered on: 08/19/14 Sex Sex Representation Female (finding) Patient Care team information Care Team Personnel Name: Whitney Fitzgerald NP Position: S PCO Associate Professional Member Role: PCP Address: [address] [place] [id number] Telecom: Care Team Related Persons Name: JAMIE GRIJALVA Name: MARSHALL GRIJALVA Insurance Providers Guarantor name: LINDA GRIJALVA Health Plan Information #: 1 Payer: [facility] Payer Identifier: NA Member Number: [id number] Group Number: [id number] Subscriber Identifier: NA Relationship to Subscriber: self Coverage Type: NA Coverage Verification Date: NA Telecom: NA Address:
--- NOTE | ~2025-03-11 | MM_ITS ---
EXAMINATION(S): MM DIAGNOSTIC DIGITAL BREAST TOMOSYNTHESIS, BILATERAL CLINICAL INFORMATION: -Callback diagnostic mammogram on August 27, 2024 describes a right breast upper outer quadrant focal asymmetry without sonographic correlate, for which a 6-month follow-up was recommended. -Patient is status post left breast stereotactic needle core biopsy of architectural distortion located in the lateral breast on the CC view posterior depth on September 06, 2024. Pathology results showed benign breast tissue with focal calcifications. A 6-month follow-up mammogram was recommended for further evaluation of stability and to make sure the clip correlates with area targeted for biopsy. COMPARISON: Stereotactic needle core biopsy on August. Diagnostic mammogram/ultrasound workup on August 27, 2024. Comparison made to multiple prior mammograms, most recent on August 27, 2024 and most remote October 15, 2017. TECHNIQUE: Digital breast tomosynthesis is performed in both the mediolateral oblique and craniocaudal views along with computer-aided detection (CAD). Synthesized 2D images are generated from the tomosynthesis. FINDINGS: BREAST COMPOSITION: There are scattered areas of fibroglandular density. RIGHT BREAST: Previously suggested focal asymmetry in the upper outer quadrant anterior depth is not significantly changed from August 2024. No new masses, suspicious calcifications or other abnormalities are seen. LEFT BREAST: The tissue marker placed at the location of the stereotactic needle core biopsy on September 06, 2024 correlates with the location of the intended target of architectural distortion in the lateral breast. The appearance of the local parenchyma on today's images appears similar to older studies. No significant masses, suspicious calcifications or other abnormalities are seen. MM/MM tomosynthesis diagnostic BI IMPRESSION: RIGHT BREAST: Focal asymmetry in the upper outer quadrant anterior depth, similar to August 2024. Probably benign. A 6-month follow-up mammogram is recommended. LEFT BREAST: Tissue marker of the stereotactic needle core biopsy correlates with the location of the intended target in the lateral breast. At this point, no dedicated imaging follow-up is thought to be needed. Benign, no mammographic evidence of malignancy. Normal interval follow-up is recommended in 12 months. ASSESSMENT: BI-RADS: Category 3: Probably benign RECOMMENDATION: 6 Month F/U Results were provided to the patient at time of visit by the technologist. This patient's information was entered into a reminder system with a target due date for their next mammogram. Electronically signed by: Sandy Montelongo MD 03/11/2025 03:44 PM EDT
--- OUTSIDE RECORDS SUMMARY | 2025-03-11 17:50 | XMS_ITS | Clinical Summary ---
Author Organization [facility] Address [address] [address] Phone Care Team Providers Care Paraprofessional Interpreter Name Role Phone Pcp, Unknown Primary Care Provider Unavailabl e Social History Tobacco Use Types Packs/Day Years Used Date Smoking Tobacco: Never Assessed Education Answer Date Recorded Are you interested in more education? Not on michelle e 09/10/2022 Are you concerned about learning? Not on file 09/10/2022 No 09/10/2022 No 09/10/2022 Digital Access Answer Date Recorded No 10/09/2022 No 10/09/2022 No 10/09/2022 Reliable internet access at home? Not on file 10/09/2022 Device with a working camera? Not on file Comments Unknown Sex and Gender Information Value Date Recorded Sex Assigned at Not on file Legal Sex Female 8:59 AM EST Gender Identity Not on file Sexual Orientation Not on file Plan of Treatment Health Maintenance Due Date Last Done Comments Adult Td,Tdap Booster 1964 LIPID PANEL 1964 DEPRESSION SCREENING 1976 SMOKING Hx and SMOKELESS TOBACCO SCREENING 1977 HEPATITIS C SCREENING 1982 HIV ONE-TIME SCREENING (18-6 5 YEARS) 1982 PAP SMEAR 1985 MAMMOGRAM 2004 COLOGUARD 2009 COLONOSCOPY 2009 COLORECTAL CANCER SCREENING 2009 FIT TEST 2009 FOBT 2009 SIGMOIDOSCOPY 2009 VIRTUAL COLONOSCOPY 2009 PNEUMOCOCCAL VACCINES (50+ years) (1 of 1 - PCV) 2014 INFLUENZA VACCINE (#1) 2024 01/13/2020 COVID-19 VACCINE (3 - 2024-2 6 season) 2025 09/13/2020, 08/22/2020 RSV VACCINE (1 - 1-dose 75+ series) 12/11/2039 ZOSTER VACCINES Completed 01/13/2020, 10/06/2019 HEPATITIS A VACCINES Aged Out No long er eligible based on patient's age to complete this topic HIB VACCINES Aged Out No longer eligi ble based on patient's age to complete this topic MENINGOCOCCAL VACCINES (ACWY) Aged Out No longer eligible based on patient's age to complete this topic MENINGOCOCCAL VACCINES (B) Aged Out N o longer eligible based on patient's age to complete this topic Medical Devices Not on file Insurance [facility] [place] [address] [place] [address] [place] [address] [facility] [place] [address] [place] [address] [place] [address] [place] [address] Care Teams Paraprofessional Interpreter Relationship Specialty Start Date End Date Pcp, Unknown PCP - General 05/24/20 Additional Source Comments The information contained in this document represents components of the legal health record. It is not the complete legal health record.[facility]
== END 2025-03-11 14:11 | disposition home or self-care (01) ==
LOC: HO.MAMMO 14:10
PROVIDERS: PCP Nurse Practitioner Family; Visit Provider Nurse Practitioner Family
DX: R92.8 Other abnormal and inconclusive findings on diagnostic imaging of breast (principal)
CPT/HCPCS: 77062; 77066

== ENCOUNTER → 2025-03-11 14:30 | Outpatient (BNV) | payer BC, SELFPAY | PROVIDERS: PCP Nurse Practitioner Family; Visit Provider Radiology Body Imaging | DX: R92.8 Other abnormal and inconclusive findings on diagnostic imaging of breast (principal) | CPT/HCPCS: 77062; 77066 ==